=== PATIENT | female | born 1975 | race Caucasian/White ===

== ENCOUNTER 2016-04-28 23:45 | Emergency (ER) | payer OTHER ==
[~2016-04-28] VITALS: Ht 180.3 cm; Wt 83.9 kg
[2016-04-28 23:50] VITALS: BP_SYST 131
[2016-04-29] MEDS ORDERED: IBUPROFEN 800 MG TABLET PO ONE
[2016-04-29 00:40] VITALS: BP_SYST 126
== END 2016-04-29 00:40 | disposition home or self-care (01) ==
LOC: SED 23:45
DX: M84.375A Stress fracture, left foot, initial encounter for fracture (principal); R03.0 Elevated blood-pressure reading, without diagnosis of hypertension; W19.XXXA Unspecified fall, initial encounter; Y93.69 Activity, other involving other sports and athletics played as a team or group; Y99.8 Other external cause status; Y92.89 Other specified places as the place of occurrence of the external cause
CPT/HCPCS: 81025; 99284